=== PATIENT | female | born 1995 | race Caucasian/White ===

== ENCOUNTER 2017-10-27 12:39 | Inpatient (IN) | payer OTHER ==
[~2017-10-27] VITALS: Ht 154.9 cm; Wt 68.9 kg
[2017-10-27 13:40] LABS: ABSOLUTE BASOPHIL COUNT 0 /CUMM (0.0-0.2); ABSOLUTE EOSINOPHIL COUNT 0 /CUMM (0.0-0.7); ABSOLUTE GRANULOCYTE CT 13.3 /CUMM (1.4-6.5); ABSOLUTE LYMPH COUNT 0.6 /CUMM (1.2-3.4); ABSOLUTE MONOCYTE COUNT 0.4 /CUMM (0.10-0.60); BASOPHIL % 0.1 % (0.0-2.0); EOSINOPHIL % 0 % (0-5); GRANULOCYTE % 92.5 % (42.2-75.2); HEMATOCRIT 34.1 % (37-47); MEAN CORPUSCULAR HGB 26.9 PG (27.0-31.0); MEAN CORPUSCULAR HGB CONC 33.4 G/DL (33.0-37.0); MEAN CORPUSCULAR VOLUME 80.6 FL (81.0-99.0); MEAN PLATELET VOLUME 10.3 FL (7.4-10.4); PLATELET COUNT 178 /CUMM (130-400); RBC DISTRIBUTION WIDTH 13.4 % (11.5-14.5); RED BLOOD CELL CT 4.23 /CUMM (4.20-5.40); WHITE BLOOD CELL COUNT 14.3 /CUMM (4.8-10.8)
[2017-10-27] MEDS ORDERED: PRENATAL TABLE1 EAC2 PO (16:18)
--- NOTE | 2017-10-27 18:43 | History & Physical ---
General Information and HPI MD Statement: I have seen and personally examined PORSHA GOMEZ and documented this H&P. The patient is a 22 year old female at [38] weeks and [3] days gestation who presented with a chief complaint of []. History of Present Illness: 22yo lmp 01/31/17 EDC 11/07/17 at 38w3d presents in active labor. care complete and unremarkable. 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 EENTM: Reports: no symptoms. Cardiovascular: Reports: no symptoms. Respiratory: Reports: no symptoms. GI: Reports: no symptoms. Genitourinary: Reports: no symptoms. Musculoskeletal: Reports: no symptoms. Skin: Reports: no symptoms. Neurological/Psychological: Reports: no symptoms. Hematologic/Endocrine: Reports: no symptoms. Immunologic/Allergic: Reports: no symptoms. All Other Systems: Reviewed and Negative Exam & Diagnostic Data Last 24 Hrs of Vital Signs/I&O Intake & Output 10/27 1600 10/27 0800 10/27 0000 Intake Total Output Total Balance Patient 152 lb Weight Obstetric Exam Wgt Gained During : 25 Pelvimetry: gynecoid Dilation (cm): 3 Effacement (%): 80 Station: -2 Membranes: intact Fluid: unknown Fundal Height (cm): 38 Multiple Gestation? No Contractions: q3 Infant #1 - FHR Baseline: 120 Category: 1 Estimated Weight: 6.5 Presentation: cephalic Patient for Induction? No Labs Blood Type & Rh: O pos Antibody Screen: neg Hct/Hgb & Platelets #1: 39/13/242 Hct/Hgb & Platelets #2: 34/11/190 Rubella: imm VDRL #1: nr VDRL #2: nr HbsAg: neg HIV #1: neg HIV #2 neg 1 Hr P Group B Strep: neg Initial Ultrasound: wnl Anatomy Ultrasound: wnl Ultrasound for EFW: 6 Genetic Testing: wnl Last 24 Hrs of Labs/Cilve: Laboratory Tests 10/27/17 1430: Urinalysis LIGHT H, Urine Color YEL, Urine Clarity CLEAR, Urine pH 7.0, Ur Specific [place] 1.015, Urine Protein TRACE H, Urine Ketones 15 H, Urine Nitrite NEG, Urine Bilirubin NEG, Urine Urobilinogen 0.2, Ur Leukocyte Esterase NEG, Ur Microscopic SEDIMENT EXAMINED, Urine RBC RARE, Urine WBC RARE, Ur Epithelial Cells MOD H, Urine Mucus FEW, Urine Hemoglobin NEG, Urine Glucose NEG 10/27/17 1310: CBC w Diff NO MAN DIFF REQ, RBC 4.23, MCV 80.6 L, MCH 26.9 L, MCHC 33.4, RDW 13.4, MPV 10.3, Gran % 92.5 H, Lymphocytes % 4.5 L, Monocytes % 2.9, Eosinophils % 0, Basophils % 0.1, Absolute Granulocytes 13.3 H, Absolute Lymphocytes 0.6 L, Absolute Monocytes 0.4, Absolute Eosinophils 0, Absolute Basophils 0 Microbiology 10/27 1430 URINE ROUT: Urine Culture - RECD Assessment/Plan Assessment/Plan: 39 week active labor expectant mgmt As Ranked By This Provider Problem List: 1. Core Measures Venous Thromboembolism VTE Risk Factors / No Mechanical VTE Prophylaxis d/t Early Ambulation No VTE Pharm Prophylaxis d/t Bleeding (Active)
[2017-10-27 19:55] VITALS: BP 113/70
--- NOTE | 2017-10-27 20:06 | Labor & Delivery Summary ---
Delivery Summary Vaginal Delivery: Vaginal: spontaneous Episiotomy/Lacerations: Episiotomy/Lacerations: EPIS Type: RML Repair: 3-0 INT LAYERED Anesthesia: EPIDURAL Placenta: Placenta: spontanteous, normal, 3 vessel, nuchal cord (x_) Baby's Weight: 7-9 Apgars - 1 Min: 8 Apgars - 5 Min: 9
--- NOTE | 2017-10-28 08:55 | PN- Post Delivery/GYN ---
Subjective Subjective: no c/o Review of Systems: neg Objective Last 24 Hrs of Vital Signs/I&O Vital Signs Date Time Temp Pulse Resp B/P B/P Pulse O2 O2 Flow FiO2 Mean Ox Delivery Rate 10/27 1954 113/70 Physical Exam: ff ext nt Assessment/Plan Assessment/Plan s/p ppd1 stable circ later discharge home tomorrow Problem List: 1.
[2017-10-28 10:25] LABS: ABSOLUTE BASOPHIL COUNT 0 /CUMM (0.0-0.2); ABSOLUTE EOSINOPHIL COUNT 0 /CUMM (0.0-0.7); ABSOLUTE LYMPH COUNT 1.7 /CUMM (1.2-3.4); ABSOLUTE MONOCYTE COUNT 0.8 /CUMM (0.10-0.60); BASOPHIL % 0.3 % (0.0-2.0); EOSINOPHIL % 0 % (0-5); GRANULOCYTE % 79.8 % (42.2-75.2); MEAN CORPUSCULAR HGB 26.6 PG (27.0-31.0); MEAN CORPUSCULAR HGB CONC 33.1 G/DL (33.0-37.0); MEAN CORPUSCULAR VOLUME 80.5 FL (81.0-99.0); MEAN PLATELET VOLUME 10.5 FL (7.4-10.4); PLATELET COUNT 171 /CUMM (130-400); RBC DISTRIBUTION WIDTH 13.8 % (11.5-14.5); RED BLOOD CELL CT 3.53 /CUMM (4.20-5.40); WHITE BLOOD CELL COUNT 12.5 /CUMM (4.8-10.8)
[2017-10-28 10:37] LABS: HEMATOCRIT 28.4 % (37-47)
[2017-10-29] MEDS ORDERED: IBUPROFEN800 M1 PO (07:39)
== END 2017-10-29 12:11 | DRG 560 ==
LOC: CBCO 12:39 → GNO 12:55
PROVIDERS: Obstetrics & Gynecology
PROC: 10E0XZZ Delivery of Products of Conception, External Approach (ICD-10-PCS; principal; 2017-10-27)
PROC: 4A1HX4Z Monitoring of Products of Conception, Cardiac Electrical Activity, External Approach (ICD-10-PCS; principal; 2017-10-27)
PROC: 0W8NXZZ Division of Female Perineum, External Approach (ICD-10-PCS; principal; 2017-10-27)
DX: O80 Encounter for full-term uncomplicated delivery (principal); Z3A.38 38 weeks gestation of pregnancy
CPT/HCPCS: GNOS; 81001; 87086; J7120